=== PATIENT | female | born 1965 | race Caucasian/White ===

== ENCOUNTER 2017-08-08 10:24 | Outpatient (CLI) | payer BC ==
--- NOTE | 2017-08-08 10:51 | RAD ---
TWO VIEWS LUMBAR SPINE: Indication: Lumbar radiculopathy. Comparison: None. FINDINGS: There is mild multilevel disc degenerative disease. There is multilevel facet osteoarthritic change. No acute fracture or subluxation is evident. No abnormal translational motion is demonstrated. IMPRESSION: No abnormal translational motion. POS: [facility]
== END 2017-08-08 10:25 | disposition home or self-care (01) ==
LOC: TBSIIMAG 10:24
PROVIDERS: ATTEND Neurological Surgery
DX: M54.16 Radiculopathy, lumbar region (principal)
CPT/HCPCS: 72100

== ENCOUNTER 2017-08-14 08:27 | Outpatient (CLI) | payer BC ==
--- NOTE | 2017-08-14 11:26 | MRI ---
LUMBAR SPINE MRI WITHOUT CONTRAST: Date: 08/14/17 COMPARISON: None. HISTORY: Lumbar radiculopathy, back pain radiating down the right side for several years. TECHNIQUE: Multiplanar, multisequence MR imaging of the lumbar spine obtained without contrast. FINDINGS: The sagittal STIR imaging demonstrates no focal area of osseous marrow edema. There is no anterolisthesis or retrolisthesis noted. Assuming five lumbar-type vertebral bodies, conus medullaris terminates at the T12-L1 level. T12-L1: There is mild bilateral facet hypertrophy with no significant central canal or neural foraminal sten osis. L1-2: There is mild disc bulge. There is mild bilateral facet hypertrophy. There is no significant central canal or neural foraminal stenosis. L2-3: There is disc space narrowing, disc desiccation, and mild disc bulge with a small right foraminal di sc protrusion. There is mild bilateral facet hypertrophy. There is no significant central canal or n eural foraminal stenosis. L3-4: There is disc desiccation and mild disc space narrowing. Annular tear suspected in the foraminal and post foraminal region on the right and in the post foraminal region on the left. There is mild bila teral facet hypertrophy. There is no significant central canal stenosis or neural foraminal stenosis . L4-5: Bilateral facet hypertrophy noted, right greater than left. No central canal stenosis or neural fora bree stenosis on either side. L5-S1: There is mild disc space narrowing, disc desiccation, and disc bulge. There is bilateral facet hyper trophy, left greater than right. No significant neural foraminal stenosis noted on either side. Imaged retroperitoneal structures appear grossly unremarkable. IMPRESSION: Multilevel degenerative change noted with no significant central canal or neural foraminal stenosis seen. POS: [facility]
== END 2017-08-14 08:28 | disposition home or self-care (01) ==
LOC: TBSIIMAG 08:27
PROVIDERS: ATTEND Neurological Surgery
DX: M47.26 Other spondylosis with radiculopathy, lumbar region (principal)
CPT/HCPCS: 72148

== ENCOUNTER 2019-08-11 01:28 | Emergency (ER) | payer BC ==
[2019-08-11] MEDS ORDERED: Ondansetron PF 4 MG/2 ML Vial ONE (01:48)
[2019-08-11 02:34] LABS: #Basophils 0.1 thou/uL (0.0-0.2); #Eosinphils 0.1 thou/uL (0.0-0.7); #Lymphocytes 2.8 thou/uL (1.20-3.40); #Monocytes 0.6 thou/uL (0.11-0.59); #Neutrophils 5.6 thou/uL (1.40-6.50); %Basophils 0.7 % (0.0-1.0); %Eosinophils 1.3 % (0.0-10.0); %Lymphocytes 30.4 % (21.0-51.0); %Monocytes 6.1 % (0.0-10.0); %Neutrophils 61.5 % (42.0-75.0); Hemoglobin 13.2 g/dL (12.0-16.0); Mean Corpuscular HGB CONC 32.7 g/dL (32.0-36.0); Mean Corpuscular Hemoglobin 30.9 pg (27.0-31.0); Mean Corpuscular Volume 94.6 fL (78.0-98.0); Mean Platelet Volume 7.3 fL (7.4-10.4); Platelet Count 287 thou/uL (130-400); RBC Distribution Width 11.8 % (11.5-14.5); Red Blood Cell (RBC) Count 4.28 mill/uL (4.20-5.40)
[2019-08-11 02:45] LABS: ALT (SGPT) 19 U/L (8-55); AST (SGOT) 18 U/L (5-34); Albumin 4.7 g/dL (3.5-5.0); Alcohol 290 mg/dL (Less than 10); Alkaline Phosphatase 43 U/L (40-110); Anion Gap 17 mmol/L (10-20); BUN (Urea Nitrogen) 14 mg/dL (9.8-20.1); Bilirubin, Total 0.4 mg/dL (0.2-1.2); Calc. Creatinine Clearance 0 mL/min (70-130); Calcium 9.6 mg/dL (7.8-10.44); Carbon Dioxide 17 mmol/L (22-29); Chloride 105 mmol/L (98-107); Estimated GFR-MDRD 83; Globulin 2.9 g/dL (2.4-3.5); Glucose 131 mg/dL (70-105); Protein, Total 7.6 g/dL (6.0-8.3); Sodium 136 mmol/L (136-145)
[2019-08-11 02:53] LABS: Potassium 2.8 mmol/L (3.5-5.1)
[2019-08-11] MEDS ORDERED: Potassium Chloride 20 MEQ TAB ONE (03:14)
[2019-08-11] MEDS ORDERED: Triple Antibiotic Oint 1 GM Packet ONE (03:17)
--- NOTE | 2019-08-11 11:56 | CT ---
PRELIMINARY REPORT/[facility]/EMERGENCY AFTER HOURS PROCEDURE: PROCEDURE INFORMATION: Exam: CT Head Without Contrast Exam date and time: 08/11/2019 2:35 AM Clinical history: 54 years old, female; Injury or trauma; Initial encounter; Blunt trauma (contusions or hematomas); Patient HX: PT presents for abrasion to nose and suspected alcohol intoxication. Pt's spouse found PT on the ground and suspects she fell due to intoxication. PT denies fall or alcohol i ntoxication, stating that she is fine and has no complaints or injuries. Spouse suspects her last alc oholic drink was at approx 0030. No alleviating or aggravating factors TECHNIQUE: Imaging protocol: Computed tomography of the head without contrast. COMPARISON: No relevant prior studies available. FINDINGS: Brain: Normal. No hemorrhage. Unremarkable white matter. No mass effect. Ventricles: Normal. No ventriculomegaly. Bones/joints: Unremarkable. No acute fracture. Sinuses: Visualized sinuses are unremarkable. No fluid levels. Mastoid air cells: Visualized mastoid air cells are well aerated. Soft tissues: Unremarkable. IMPRESSION: No acute intracranial abnormality. Thank you for allowing us to participate in the care of your patient. Dictated and Authenticated by: Mike Weaver MD 08/11/2019 2:52 AM Central Time ([place] & [place]) FINAL REPORT CT BRAIN WITHOUT CONTRAST: IMPRESSION: I agree with the preliminary report given by Stephanie. POS: [facility]
--- NOTE | 2019-08-11 11:58 | CT ---
PRELIMINARY REPORT/[facility]/EMERGENCY AFTER HOURS PROCEDURE: PROCEDURE INFORMATION: Exam: CT Cervical Spine Without Contrast Exam date and time: 08/11/2019 2:35 AM Clinical history: 54 years old, female; Injury or trauma; Initial encounter; Blunt trauma; Patient HX : PT presents for abrasion to nose and suspected alcohol intoxication. Pt's spouse found PT on the gr ound and suspects she fell due to intoxication. PT denies fall or alcohol intoxication, stating that she is fine and has no complaints or injuries. Spouse suspects her last alcoholic drink was at approx 0030. No alleviating or aggravating factors TECHNIQUE: Imaging protocol: Computed tomography images of the cervical spine without contrast. COMPARISON: No relevant prior studies available. FINDINGS: Vertebrae: No acute fracture. Normal alignment. Discs/Spinal canal/Neural foramina: No spinal stenosis. No neural foraminal narrowing. Soft tissues: Unremarkable. Lungs: Lung apices are normal. IMPRESSION: No acute findings. Thank you for allowing us to participate in the care of your patient. Dictated and Authenticated by: Mike Weaver MD 08/11/2019 2:56 AM Central Time ([place] & [place]) FINAL REPORT CT CERVICAL SPINE WITH CORONAL AND SAGITTAL REFORMATIONS: IMPRESSION: I agree with the preliminary report given by Stephanie. POS: [facility]
== END 2019-08-11 03:46 | disposition home or self-care (01) ==
LOC: ERS 01:28
DX: S00.31XA Abrasion of nose, initial encounter (principal); F10.129 Alcohol abuse with intoxication, unspecified; E87.6 Hypokalemia; W19.XXXA Unspecified fall, initial encounter
CPT/HCPCS: 70450; 72125; 80053; 80307; 83735; 85025; 93005; 96361; 96374; J2405

== ENCOUNTER 2022-08-17 12:39 | Outpatient (CLI) | payer BC | END 2022-08-17 12:40 | disposition home or self-care (01) | LOC: TBSIIMAG 12:39 | PROVIDERS: ATTEND Neurological Surgery | DX: M54.2 Cervicalgia (principal); R20.0 Anesthesia of skin; M47.812 Spondylosis without myelopathy or radiculopathy, cervical region; M48.02 Spinal stenosis, cervical region | CPT/HCPCS: 72141 ==

== ENCOUNTER 2023-10-10 12:50 | Outpatient (CLI) | payer BC | END 2023-10-10 12:51 | disposition home or self-care (01) | LOC: BICMAMMO 12:50 | PROVIDERS: ATTEND Nurse Practitioner Family | DX: N64.4 Mastodynia (principal); M79.621 Pain in right upper arm | CPT/HCPCS: 77066; G0279 ==